=== PATIENT | male | born 1950 | race African-American/Black ===

== ENCOUNTER 2016-10-25 11:26 | Inpatient (IN) | payer OTHER ==
[2016-10-25 14:00] VITALS: BMI 19.8
[2016-10-25] MEDS ORDERED: guaiFENesin/D-METHORPHAN HB 10 ML UNIT-DOSE CUPS PO PRN (14:54)
[2016-10-25] MEDS ORDERED: NICOTINE POLACRILEX 2 MG GUM BUC PRN (14:54)
[2016-10-25] MEDS ORDERED: MENTHOL/PHENOL 1 EACH UD MM PRN (14:54)
[2016-10-25] MEDS ORDERED: LOPERAMIDE HCL 2 MG CAPSULE PO PRN (14:54)
[2016-10-25] MEDS ORDERED: MAGNESIUM CITRATE 300 ML BOTTLE PO PRN (14:54)
[2016-10-25] MEDS ORDERED: ACETAMINOPHEN 325 MG TABLET (FP) PO PRN (14:54)
[2016-10-25] MEDS ORDERED: MAG HYDROX/AL HYDROX/SIMETH 30 ML UNIT-DOSE CUP PO PRN (14:54)
[2016-10-25] MEDS ORDERED: hydrOXYzine PAMOATE 50 MG CAPSULE (FP) PO PRN (14:54)
[2016-10-25] MEDS ORDERED: IBUPROFEN 400 MG TABLET (FP) PO PRN (14:54)
[2016-10-25] MEDS ORDERED: MAGNESIUM HYDROX 2400MG/30ML ORAL SUSPENSION 30 ML CUP PO PRN (14:54)
--- NOTE | 2016-10-25 14:57 | HP ---
CIWA Score - CIWA Score Nausea/Vomitin Muscle Tremors: 4-Moderate,w/Arms Extend Anxiety: 3 Agitation: 4-Moderately Restless Paroxysmal Sweats: 3 Orientation: 0-Oriented Tacttile Disturbances: 1-Very Mild Itch/Numbness Auditory Disturbances: 0-None Visual Disturbances: 0-None Headache: 1-Very Mild CIWA-Ar Total Score: 19 Admission ROS BHS - HPI Chief Complaint: would like to stop using alcohol and cocaine, wants to go to rehab after detox Allergies/Adverse Reactions: Allergies Allergy/AdvReac Type Severity Reaction Status Date / Time No Known Allergies Allergy Verified 10/25/16 15:26 History of Present Illness: 66 yo m with h/o chronic alcoholism and cocaine dependence, denies all other drug use, smokes cigarrettes 1/2 PPD. PMHX no other medical conditions, no suicidal ideaton or suicide attempts in past. No h/o seizures, no h/o Dts, last drink and smoke crack cocaine last night. Reports drinking 6 pack and MARCELO when he does not drink with ancxiety, derpession and insomnia. Smokes crack cocaine daily $40. Last treatment episode last year here at [facility] Exam Limitations: No Limitations - Ebola screening Have you traveled outside of the country in the last 21 days: No Have you had contact with anyone from an Ebola affected area: No Have you been sick,other than usual withdrawal symptoms: No - Review of Systems Constitutional: Loss of Appetite, Changes in sleep, Unintentional Wgt. Loss EENT: reports: No Symptoms Reported Respiratory: reports: No Symptoms reported Cardiac: reports: No Symptoms Reported GI: reports: No Symptoms Reported : reports: No Symptoms Reported Musculoskeletal: reports: No Symptoms Reported Integumentary: reports: No Symptoms Reported Neuro: reports: No Symptoms reported Endocrine: reports: No Symptoms Reported Hematology: reports: No Symptoms Reported Psychiatric: reports: Judgement Intact, Mood/Affect Appropiate, Orientated x3, Agitated, Anxious, Depressed Other Systems: Reviewed and Negative Patient History - Patient Medical History Hx Anemia: No Hx Asthma: No Hx Chronic Obstructive Pulmonary Disease (COPD): No Hx Cancer: No Hx Cardiac Disorders: No Hx Congestive Heart Failure: No Hx Hypertension: No Hx Hypercholesterolemia: No Hx Pacemaker: No HX Cerebrovascular Accident: No Hx Seizures: No Hx Dementia: No Hx Diabetes: No Hx Gastrointestinal Disorders: No Hx Liver Disease: No Hx Genitourinary Disorders: No Hx Sexually Transmitted Disorders: Yes (gonorrhea) Hx Renal Disease (ESRD): No Hx Thyroid Disease: No Hx Human Immunodeficiency Virus (HIV): No Hx Hepatitis C: No Hx Depression: Yes (anxiety when he does not drink) Hx Suicide Attempt: No (denies) Hx Bipolar Disorder: No Hx Schizophrenia: No - Patient Surgical History Past Surgical History: Yes Hx Neurologic Surgery: No Hx Cataract Extraction: No Hx Cardiac Surgery: No Hx Lung Surgery: No Hx Breast Surgery: No Hx Breast Biopsy: No Hx Abdominal Surgery: Yes (umbilical hernia repair at age 24) Hx Appendectomy: No Hx Cholecystectomy: No Hx Genitourinary Surgery: No Hx Section: No Hx Orthopedic Surgery: No Anesthesia Reaction: No - PPD History Previous Implant?: Yes Documented Results: Negative w/proof Implanted On Prior R Admission?: Yes PPD to be Administered?: Yes - Reproductive History Patient is a Female of Child Bearing Age (11 -55 yrs old): No Patient : No - Smoking Cessation Smoking history: Current every day smoker Have you smoked in the past 12 months: Yes Aproximately how many cigarettes per day: 10 Hx Chewing Tobacco Use: No Initiated information on smoking cessation: Yes 'Breaking Loose' booklet given: 10/25/16 - Substance & Tx. History Hx Alcohol Use: Yes Hx Substance Use: Yes Substance Use Type: Alcohol, Cocaine Hx Substance Use Treatment: Yes ([facility] last year) - Substances Abused Alcohol Route: Oral Frequency: Daily Amount used: Beer 3-6 16oz Age of first use: 23 Date of Last Use: 10/25/16 Cocaine Route: Smoking Frequency: Daily Amount used: 0.5 gm $40 daikly Age of first use: 40 Date of Last Use: 10/25/16 Family Disease History - Family Disease History Family Disease History: Heart Disease: Father (etoh), Mother (htn) Admission Physical Exam BHS - Vital Signs Vital Signs: Vital Signs - 24 hr 10/25/16 13:58 Temperature 96.8 F L Pulse Rate 90 Respiratory 18 Rate Blood Pressure 137/73 - Physical General Appearance: Yes: Nourished, Appropriately Dressed, Disheveled, Mild Distress, Thin, Sweating, Anxious HEENTM: Yes: Within Normal Limits, EOMI, Hearing grossly Normal, Normal ENT Inspection, Normocephalic, Normal Voice, JHONATHAN, Pharynx Normal Respiratory: Yes: Within Normal Limits, Chest Non-Tender, Lungs Clear, Normal Breath Sounds, No Respiratory Distress, No Accessory Muscle Use Neck: Yes: Within Normal Limits, No masses,lesions,Nodules, Supple, Trachea in good position Breast: Yes: Breast Exam Deferred Cardiology: Yes: Within Normal Limits, Regular Rhythm, Regular Rate, S1, S2 Abdominal: Yes: Within Normal Limits, Normal Bowel Sounds, Non Tender, Flat, Soft Genitourinary: Yes: Within Normal Limits Back: Yes: Within Normal Limits, Normal Inspection Musculoskeletal: Yes: Within Normal Limits, full range of Motion, Gait Steady Extremities: Yes: Normal Capillary Refill, Normal Inspection, Normal Range of Motion, Non-Tender, Tremors Neurological: Yes: animal doctor II-XII NML intact, Fully Oriented, Alert, Motor Strength 5/5, Normal Response, Depressed Affect Integumentary: Yes: Within Normal Limits, Normal Color, Dry, Warm Lymphatic: Yes: Within Normal Limits - Addiitonal Findings: withdrawal sx present - Diagnostic (1) Alcohol-induced mood disorder Current Visit: Yes Status: Acute (2) Alcohol dependence with uncomplicated withdrawal Current Visit: Yes Status: Chronic (3) Cocaine dependence Current Visit: Yes Status: Chronic Qualifiers: Substance use status: uncomplicated Qualified Code(s): F14.20 - Cocaine dependence, uncomplicated (4) Nicotine dependence Current Visit: Yes Status: Chronic Qualifiers: Nicotine product type: cigarettes Substance use status: in withdrawal Qualified Code(s): F17.213 - Nicotine dependence, cigarettes, with withdrawal (5) Weight loss Current Visit: Yes Status: Acute (6) Anorexia Current Visit: Yes Status: Acute (7) Malnutrition Current Visit: Yes Status: Acute (8) Cachexia Current Visit: Yes Status: Acute Cleared for Admission S - Detox or Rehab Claeared for Rehab Admission: Yes [facility] Breath Alcohol Content Breath Alcohol Content: 0 Urine Drug Screen - Control Is Test Valid: Yes - Results Drug Screen Negative: No Urine Drug Screen Results: THC-Marijuana, LISA-Cocaine
[2016-10-25] MEDS ORDERED: chlordiazePOXIDE HCL 25 MG CAPSULE PO PRN (15:49)
[2016-10-25] MEDS ORDERED: chlordiazePOXIDE HCL 25 MG CAPSULE PO ONE (15:57)
[2016-10-25] MEDS: chlordiazePOXIDE HCL 25 MG CAPSULE PO SCH ×2 (16:42→22:32)
--- NOTE | 2016-10-25 17:00 | PN ---
BHS Progress Note Note: RECEIVED NURSE CALL HISTORY OF POSITIVE PPD CHEST X RAY CONTINUE DETOX
[2016-10-25 17:04] LABS: MCH 32.8 pg (25.7-33.7); MEAN CELL VOLUME 96.7 fl (80-96); MEAN PLT VOLUME 8.7 fl (7.5-11.1); PLATELET COUNT 213 K/MM3 (134-434); RDW 12.2 % (11.9-15.9); WHITE BLOOD COUNT 5.4 K/mm3 (4.0-10.0)
[2016-10-25 17:31] LABS: ALBUMIN 4.1 g/dl (3.4-5.0); BILIRUBIN,TOTAL 0.8 mg/dL (0.2-1.0); CALCIUM 9.5 mg/dL (8.5-10.1); CREATININE 1.3 mg/dL (0.7-1.3); TOT PROT 7.4 g/dl (6.4-8.2)
[2016-10-25] MEDS: NICOTINE 14 MG/24 HOURS TOPICAL PATCH TD SCH (20:32)
[2016-10-25] MEDS: diphenhydrAMINE HCL 50 MG CAPSULE PO PRN (20:46)
[2016-10-25] MEDS: THIAMINE HCL 100 MG TABLET (FP) PO SCH (22:32)
[2016-10-25 23:04] LABS: URINE APPEARANCE SLCLOUDY; URINE BILIRUBIN NEGATIVE (NEGATIVE); URINE BLOOD 2+ (NEGATIVE); URINE COLOR YELLOW; URINE GLUCOSE (UA) NEGATIVE (NEGATIVE); URINE KETONE NEGATIVE (NEGATIVE); URINE LEUK ESTERASE 2+ (NEGATIVE); URINE NITRITE NEGATIVE (NEGATIVE); URINE PROTEIN 1+ (NEGATIVE); URINE UROBILINOGEN NEGATIVE E.U./dl (0.2-1.0)
[2016-10-25 23:10] LABS: CALCIUM OXALATE CRYSTALS MANY /hpf (NONE SEEN); URINE BACTERIA RARE /hpf (NONE SEEN); URINE MUCUS MODERATE; URINE RBC 63 /hpf (0-3); URINE WBC 61 /hpf (3-5)
[2016-10-26] MEDS: chlordiazePOXIDE HCL 25 MG CAPSULE PO SCH ×4 (05:50→22:53)
[2016-10-26] MEDS: PRENATAL VITAMINS W/ FOLIC ACID TABLET (FP) PO SCH (11:15)
[2016-10-26] MEDS: P-EPHED 60MG/TRIPROLIDI 2.5MG TABLET PO PRN ×2 (11:15→22:55)
[2016-10-26] MEDS: NICOTINE 14 MG/24 HOURS TOPICAL PATCH TD SCH (12:14)
--- NOTE | 2016-10-26 12:54 | PN ---
[facility] CIWA - CIWA Score Nausea/Vomitin Muscle Tremors: 3 Anxiety: 3 Agitation: 2 Paroxysmal Sweats: 1-Minimal Palms Moist Orientation: 0-Oriented Tacttile Disturbances: 1-Very Mild Itch/Numbness Auditory Disturbances: 1-Very Mild Visual Disturbances: 1-Very Mild Sensitivity Headache: 2-Mild CIWA-Ar Total Score: 17 BHS Progress Note (SOAP) Subjective: ALERT,IRRITABLE,ANXIOUS,INTERRUPTED SLEEP,TREMOR Objective: 10/26/16 12:51 Vital Signs Temperature 97.7 F 10/26/16 10:04 Pulse Rate 87 10/26/16 10:04 Respiratory Rate 16 10/26/16 10:04 Blood Pressure 138/91 10/26/16 10:04 O2 Sat by Pulse Oximetry (%) EKG NSR NO CHEST PAIN,NO SOB,NO DIZZINESS 10/26/16 12:52 Laboratory Last Values WBC 5.4 K/mm3 (4.0-10.0) 10/25/16 15:00 RBC 4.58 M/mm3 (4.00-5.60) 10/25/16 15:00 Hgb 15.0 GM/dL (11.7-16.9) 10/25/16 15:00 Hct 44.3 % (35.4-49) 10/25/16 15:00 MCV 96.7 fl (80-96) H 10/25/16 15:00 MCHC 34.0 g/dl (32.0-35.9) 10/25/16 15:00 RDW 12.2 % (11.9-15.9) 10/25/16 15:00 Plt Count 213 K/MM3 (134-434) 10/25/16 15:00 MPV 8.7 fl (7.5-11.1) 10/25/16 15:00 Sodium 142 mmol/L (136-145) 10/25/16 15:00 Potassium 3.8 mmol/L (3.5-5.1) 10/25/16 15:00 Chloride 102 mmol/L (98-107) 10/25/16 15:00 Carbon Dioxide 32 mmol/L (21-32) 10/25/16 15:00 Anion Gap 8 (8-16) 10/25/16 15:00 BUN 16 mg/dL (7-18) 10/25/16 15:00 Creatinine 1.3 mg/dL (0.7-1.3) 10/25/16 15:00 Creat Clearance w eGFR 55.58 (>60) 10/25/16 15:00 Random Glucose 57 mg/dL (74-106) L D 10/25/16 15:00 Calcium 9.5 mg/dL (8.5-10.1) 10/25/16 15:00 Total Bilirubin 0.8 mg/dL (0.2-1.0) D 10/25/16 15:00 AST 28 U/L (15-37) D 10/25/16 15:00 ALT 35 U/L (12-78) 10/25/16 15:00 Alkaline Phosphatase 92 U/L (45-117) 10/25/16 15:00 Total Protein 7.4 g/dl (6.4-8.2) 10/25/16 15:00 Albumin 4.1 g/dl (3.4-5.0) 10/25/16 15:00 Urine Color Yellow 10/25/16 22:03 Urine Appearance Slcloudy 10/25/16 22:03 Urine pH 5.0 (5.0-8.0) D 10/25/16 22:03 Ur Specific Castor 1.020 (1.001-1.035) 10/25/16 22:03 Urine Protein 1+ (NEGATIVE) H 10/25/16 22:03 Urine Glucose (UA) Negative (NEGATIVE) 10/25/16 22:03 Urine Ketones Negative (NEGATIVE) 10/25/16 22:03 Urine Blood 2+ (NEGATIVE) H 10/25/16 22:03 Urine Nitrite Negative (NEGATIVE) 10/25/16 22:03 Urine Bilirubin Negative (NEGATIVE) 10/25/16 22:03 Urine Urobilinogen Negative E.U./dl (0.2-1.0) 10/25/16 22:03 Ur Leukocyte Esterase 2+ (NEGATIVE) H 10/25/16 22:03 Urine RBC 63 /hpf (0-3) 10/25/16 22:03 Urine WBC 61 /hpf (3-5) 10/25/16 22:03 Ur Epithelial Cells Rare /hpf (FEW) 10/25/16 22:03 Calcium Oxalate Crystal Many /hpf (NONE SEEN) 10/25/16 22:03 Urine Bacteria Rare /hpf (NONE SEEN) 10/25/16 22:03 Urine Mucus Moderate 10/25/16 22:03 LABS PENDING Assessment: WITHDRAWAL SYMPTOM Plan: CONTINUE DETOX,REPEAT UA,
--- NOTE | 2016-10-26 18:50 | EKG ---
Test Reason : Blood Pressure : / mmHG Vent. Rate : 077 BPM Atrial Rate : 077 BPM P-R Int : 180 ms QRS Dur : 082 ms QT Int : 410 ms P-R-T Axes : 079 -15 205 degrees QTc Int : 463 ms NORMAL SINUS RHYTHM POSSIBLE LEFT ATRIAL ENLARGEMENT LEFT VENTRICULAR HYPERTROPHY CANNOT RULE OUT SEPTAL INFARCT , AGE UNDETERMINED MARKED T-WAVE ABNORMALITY, CONSIDER INFEROLATERAL ISCHEMIA ABNORMAL ECG NO PREVIOUS ECGS AVAILABLE Confirmed by TEX SYED, JACQUELINE ([id number]) on 10/26/2016 6:50:29 PM Referred By: Confirmed By:JACQUELINE NICE MD
[2016-10-26] MEDS: THIAMINE HCL 100 MG TABLET (FP) PO SCH (22:53)
[2016-10-27] MEDS: chlordiazePOXIDE HCL 25 MG CAPSULE PO SCH ×2 (06:05→10:47)
[2016-10-27] MEDS: P-EPHED 60MG/TRIPROLIDI 2.5MG TABLET PO PRN (06:06)
[2016-10-27] MEDS: NICOTINE 14 MG/24 HOURS TOPICAL PATCH TD SCH (10:47)
[2016-10-27] MEDS: PRENATAL VITAMINS W/ FOLIC ACID TABLET (FP) PO SCH (10:47)
[2016-10-27] MEDS: HYDROCHLOROTHIAZIDE 25 MG TABLET (FP) PO SCH (10:48)
--- NOTE | 2016-10-27 11:51 | PN ---
S CIWA - CIWA Score Nausea/Vomitin Muscle Tremors: 3 Anxiety: 3 Agitation: 3 Paroxysmal Sweats: 1-Minimal Palms Moist Orientation: 0-Oriented Tacttile Disturbances: 1-Very Mild Itch/Numbness Auditory Disturbances: 1-Very Mild Visual Disturbances: 1-Very Mild Sensitivity Headache: 2-Mild CIWA-Ar Total Score: 18 BHS Progress Note (SOAP) Subjective: ALERT,IRRITABLE,ANXIOUS,INTERRUPTED SLEEP,TREMOR,HISTORY OF HTN Objective: 10/27/16 11:48 Vital Signs Temperature 97.5 F L 10/27/16 11:00 Pulse Rate 87 10/27/16 11:00 Respiratory Rate 16 10/27/16 11:00 Blood Pressure 153/98 10/27/16 11:00 O2 Sat by Pulse Oximetry (%) Assessment: 10/27/16 11:49 WITHDRAWAL SYMPTOM Plan: CONTINUE DETOX,HISTORY OF HTN,WILL STARTED ON HYDROCHLOROTHIAZIDE 25 MGS PO DAILY,BP MONITORING
[2016-10-27 13:40] LABS: URINE APPEARANCE SLCLOUDY; URINE BILIRUBIN NEGATIVE (NEGATIVE); URINE BLOOD NEGATIVE (NEGATIVE); URINE COLOR LTYELLOW; URINE GLUCOSE (UA) NEGATIVE (NEGATIVE); URINE KETONE NEGATIVE (NEGATIVE); URINE NITRITE NEGATIVE (NEGATIVE); URINE PROTEIN NEGATIVE (NEGATIVE); URINE UROBILINOGEN NEGATIVE E.U./dl (0.2-1.0)
[2016-10-27 13:49] LABS: URINE LEUK ESTERASE TRACE (NEGATIVE)
[2016-10-27 13:54] LABS: URINE BACTERIA RARE /hpf (NONE SEEN); URINE MUCUS RARE; URINE RBC 10 /hpf (0-3); URINE WBC 24 /hpf (3-5)
[2016-10-27] MEDS: chlordiazePOXIDE 5 MG CAPSULE PO SCH ×2 (17:55→22:23)
[2016-10-27] MEDS: THIAMINE HCL 100 MG TABLET (FP) PO SCH (22:23)
--- NOTE | 2016-10-28 00:09 | EKG ---
Test Reason : Blood Pressure : / mmHG Vent. Rate : 076 BPM Atrial Rate : 076 BPM P-R Int : 170 ms QRS Dur : 086 ms QT Int : 382 ms P-R-T Axes : 087 -06 064 degrees QTc Int : 429 ms NORMAL SINUS RHYTHM NONSPECIFIC ST AND T WAVE ABNORMALITY POSSIBLE LEFT VENTRICULAR HYPERTROPHY ABNORMAL ECG WHEN COMPARED WITH ECG OF 26-OCT-2016 07:50, NONSPECIFIC T WAVE ABNORMALITY NOW EVIDENT IN LATERAL LEADS Confirmed by JACQUELINE NICE MD ([id number]) on 10/28/2016 12:09:05 AM Referred By: Confirmed By:JACQUELINE NICE MD
[2016-10-28] MEDS: chlordiazePOXIDE 5 MG CAPSULE PO SCH ×2 (05:48→10:22)
[2016-10-28] MEDS: NICOTINE 14 MG/24 HOURS TOPICAL PATCH TD SCH (10:21)
[2016-10-28] MEDS: P-EPHED 60MG/TRIPROLIDI 2.5MG TABLET PO PRN (10:22)
[2016-10-28] MEDS: PRENATAL VITAMINS W/ FOLIC ACID TABLET (FP) PO SCH (10:22)
[2016-10-28] MEDS: HYDROCHLOROTHIAZIDE 25 MG TABLET (FP) PO SCH (10:22)
--- NOTE | 2016-10-28 11:34 | PN ---
S Progress Note (SOAP) Subjective: ALERT,IRRITABLE,INTERRUPTED SLEEP Objective: 10/28/16 11:33 Vital Signs Temperature 97.7 F 10/28/16 10:17 Pulse Rate 81 10/28/16 10:17 Respiratory Rate 16 10/28/16 10:17 Blood Pressure 145/91 10/28/16 10:17 O2 Sat by Pulse Oximetry (%) Assessment: 10/28/16 11:33 WITHDRAWAL SYMPTOM Plan: CONTINUE DETOX,DISCHARGE IN AM
--- NOTE | 2016-10-28 14:04 | EKG ---
Test Reason : Blood Pressure : / mmHG Vent. Rate : 066 BPM Atrial Rate : 066 BPM P-R Int : 200 ms QRS Dur : 120 ms QT Int : 402 ms P-R-T Axes : 090 -20 005 degrees QTc Int : 421 ms POOR DATA QUALITY, INTERPRETATION MAY BE ADVERSELY AFFECTED NORMAL SINUS RHYTHM LEFT VENTRICULAR HYPERTROPHY WITH QRS WIDENING EARLY REPOLARIZATION NONSPECIFIC T WAVE ABNORMALITY ABNORMAL ECG WHEN COMPARED WITH ECG OF 25-OCT-2016 16:49, T WAVE INVERSION LESS EVIDENT IN INFEROLATERAL LEADS Confirmed by TEX SYED, JACQUELINE ([id number]) on 10/28/2016 2:04:31 PM Referred By: Confirmed By:JACQUELINE NICE MD
[2016-10-28] MEDS: chlordiazePOXIDE HCL 10 MG CAPSULE PO SCH ×2 (17:24→22:19)
[2016-10-28] MEDS: diphenhydrAMINE HCL 50 MG CAPSULE PO PRN (22:19)
[2016-10-28] MEDS: THIAMINE HCL 100 MG TABLET (FP) PO SCH (22:19)
[2016-10-29] MEDS: chlordiazePOXIDE HCL 10 MG CAPSULE PO SCH (05:50)
--- NOTE | 2016-10-29 09:25 | PN ---
S Progress Note (SOAP) Subjective: alert,no complaint Objective: 10/29/16 09:23 Vital Signs Temperature 98.8 F 10/29/16 06:49 Pulse Rate 75 10/29/16 06:49 Respiratory Rate 18 10/29/16 06:49 Blood Pressure 139/82 10/29/16 06:49 O2 Sat by Pulse Oximetry (%) Assessment: 10/29/16 09:23 detox completed,no withdrawal symptom Plan: discharge today,follow up with after care program as arrangement and pmd for medical problem
--- NOTE | 2016-10-29 09:28 | DS ---
[facility] Detox Discharge Summary Admission Date: 10/25/16 Discharge Date: 10/29/16 - History Present History: Alcohol Dependence, Cocaine Dependence Additional Comments: follow up with after care program [facility] as arrangement and pmd for medical problem Pertinent Past History: hypertension weight loss positive ppd - Physical Exam Results Vital Signs: Vital Signs Temperature 98.8 F 10/29/16 06:49 Pulse Rate 75 10/29/16 06:49 Respiratory Rate 18 10/29/16 06:49 Blood Pressure 139/82 10/29/16 06:49 O2 Sat by Pulse Oximetry (%) Pertinent Admission Physical Exam Findings: withdrawal symptom - Treatment Hospital Course: Detox Protocol Followed, Detoxed Safely, Responded well, Discharged Condition Good, Rehab Referral Accepted ([facility]) Patient has Accepted a Rehab Referral to: [facility] - Medication Discharge Medications: Ambulatory Orders NK [No Known Home Medication] 11/15/15 - AMA Did Patient Leave Against Medical Advice: No
[2016-10-29 10:27] VITALS: BP 115/80; PULSE 104; TEMP 97.3
[2016-10-29] MEDS: HYDROCHLOROTHIAZIDE 25 MG TABLET (FP) PO SCH (10:45)
[2016-10-29] MEDS: NICOTINE 14 MG/24 HOURS TOPICAL PATCH TD SCH (10:45)
[2016-10-29] MEDS: PRENATAL VITAMINS W/ FOLIC ACID TABLET (FP) PO SCH (10:45)
== END 2016-10-29 11:06 | disposition home or self-care (01) | DRG 774 ==
LOC: YASAS 11:26 → Y6N 15:51
PROVIDERS: ADMIT Internal Medicine; ATTEND Internal Medicine
PROC: HZ2ZZZZ Detoxification Services for Substance Abuse Treatment (ICD-10-PCS; principal; 2016-10-29)
DX: F10.230 Alcohol dependence with withdrawal, uncomplicated (principal); F14.20 Cocaine dependence, uncomplicated; F17.210 Nicotine dependence, cigarettes, uncomplicated; F10.24 Alcohol dependence with alcohol-induced mood disorder; R63.4 Abnormal weight loss; E46 Unspecified protein-calorie malnutrition; R64 Cachexia
CPT/HCPCS: 36415; 71020-TC; 80053; 81003; 81015; 85027; 86593; 93005; 93010